=== PATIENT | female | born 1940 | race Two or more races ===

== ENCOUNTER 2021-01-29 02:28 | Inpatient (IN) | payer MEDICARE, OTHER ==
[~2021-01-29] VITALS: Ht 154.9 cm; Wt 48.5 kg
--- NOTE | 2021-01-29 02:30 | NUR ---
2 IV LINES ESTABLISHED. R FOREARM 18 G LAC 20 G. BLOOD COLLECTED AND SENT TO LAB
--- NOTE | 2021-01-29 02:32 | NUR ---
pt bibra c/o aloc. pt breathing evenly and unlabored. Per family, pt is normally independent, but she started acting "strange around 2200". upon assessment, pt moves her head side to side, not focusing on anything. Pt alternates lifting her rt side extremities and her left side extremities. Family at bedside for translation. pt attached to monitor and pox. pt given blanket and call light within reach.
--- NOTE | 2021-01-29 02:36 | NUR ---
EKG AT BEDSIDE
--- NOTE | 2021-01-29 02:46 | NUR ---
CALLED CODE STROKE
--- NOTE | 2021-01-29 02:51 | NUR ---
PT TAKEN TO RADIOLOGY FOR CT
--- NOTE | 2021-01-29 02:54 | NUR ---
blood glucose 124
[2021-01-29 02:55] LABS: BASOPHILS % (AUTO) 0.6 % (0.0-2.0); EOSINOPHILS % (AUTO) 2.3 % (0.0-6.0); HEMATOCRIT 42 % (33-45); HEMOGLOBIN 13.1 g/dL (11.5-14.8); LYMPHOCYTES # (AUTO) 3.8 /CMM (0.8-4.8); LYMPHOCYTES % (AUTO) 52.6 % (20.0-44.0); MEAN CORPUSCULAR HGB CONC 32 g/dl (31.0-36.0); MEAN CORPUSCULAR VOLUME 84 fL (82-100); MONOCYTES # (AUTO) 0.6 /CMM (0.1-1.30); MONOCYTES % (AUTO) 8.5 % (2.0-12.0); NEUTROPHILS # (AUTO) 2.6 /CMM (1.8-8.9); PLATELET COUNT (AUTO) 199 /CMM (150-450); RED BLOOD CELL COUNT(AUTO) 4.96 MIL/uL (4.0-5.2); WHITE BLOOD COUNT (AUTO) 7.2 K/uL (4.3-11.0)
--- NOTE | 2021-01-29 03:00 | NUR ---
PT RETURNED FROM CT
[2021-01-29 03:02] LABS: CALCIUM, SERUM 8.8 mg/dL (8.5-10.1); CREATININE 0.7 mg/dL (0.6-1.3); POTASSIUM 3.5 mmol/L (3.5-5.1)
--- NOTE | 2021-01-29 03:05 | NUR ---
DR YORK AT BEDSIDE SPEAKING WITH NEUROTELESURGEON
[2021-01-29 03:19] LABS: ALBUMIN 3.5 g/dL (3.4-5.0); BILIRUBIN,DIRECT 0.2 mg/dL (0.0-0.2); BILIRUBIN,TOTAL 0.6 mg/dL (0.2-1.0); TOTAL PROTEIN, SERUM 7.5 g/dL (6.4-8.2)
[2021-01-29] MEDS ORDERED: IV NS 0.9% 250 ML IV ONE (03:22)
[2021-01-29] MEDS ORDERED: IOHEXOL-350 100 ML VIAL IV ONE (03:22)
[2021-01-29 03:27] LABS: CHOLESTEROL 174 mg/dL (<200); TRIGLYCERIDES 154 mg/dL (30-150)
[2021-01-29 03:28] LABS: HDL CHOLESTEROL 84 mg/dL (40-60); LDL 93 mg/dL (0-99)
[2021-01-29] MEDS ORDERED: LORAZEPAM INJ 2 MG/ML VIAL IV ONE (03:30)
--- NOTE | 2021-01-29 03:31 | NUR ---
taken to ct
[2021-01-29 03:40] LABS: THYROID STIMULATING HORMONE 4.424 uIU/mL (0.358-3.74)
--- NOTE | 2021-01-29 03:45 | NUR ---
CALL FROM LAB. RAPID COVID NEGATIVE.
[2021-01-29] MEDS ORDERED: LORAZEPAM INJ 2 MG/ML VIAL ONE (04:01)
--- NOTE | 2021-01-29 04:29 | NUR ---
gave report to VENUS Garcia for zac
[2021-01-29] MEDS ORDERED: MAG HYDROX/AL HYDROX/SIMETH 30 ML UDC PO PRN (04:30)
[2021-01-29] MEDS ORDERED: MAGNESIUM HYDROXIDE 30 ML UDC PO PRN (04:30)
[2021-01-29] MEDS ORDERED: ONDANSETRON HCL/PF 4 MG/2 ML VIAL IVP PRN (04:30)
[2021-01-29] MEDS ORDERED: HYDROCODONE/APAP 5/325MG TABLET PO PRN (04:30)
[2021-01-29] MEDS ORDERED: Z GUARD REMEDY 2 OZ OINT TP PRN (04:30)
[2021-01-29] MEDS ORDERED: ZOLPIDEM TARTRATE 5 MG TABLET PO PRN (04:30)
--- NOTE | 2021-01-29 04:30 | NUR ---
yonas [place] [facility] [phone]
[2021-01-29 04:40] VITALS: BP 151/64
--- NOTE | 2021-01-29 04:40 | NUR ---
COSMETOLOGY EDUCATOR ADMITTING NOTE RECEIVED REPORT FROM ZEINAB FINE RN. PATIENT RECEIVED MEDICALLY STABLE. PATIENT IS ALERT BUT CONFUSED, HONDURAN SPEAKING ONLY. BREATHING EVEN AND UNLABORED, TOLERATING ROOM AIR WITH 100% O2 SATURATION. PATIENT IS UNABLE TO AMBULATE AT THIS TIME. SKIN IS INTACT. L AC #20 G AND R FA 18 G PATENT AND INTACT. CALLED SON ([phone]) TO OBTAIN ADMISSION INFORMATION. ORIENTED PATIENT TO THE UNIT, ROOM, PRIMARY NURSE, CHARGE NURSE, AND ATG JAVA DEVELOPER. SAFETY MEASURES IN PLACE: BED IN LOCKED AND LOWEST POSITION, BED ALARM ON, SIDE RAILS UP X 3, CALL LIGHT WITHIN REACH, HOB ELEVATED. WILL MONITOR PATIENT CLOSELY.
--- NOTE | 2021-01-29 07:10 | NUR ---
SUPPORT COORDINATOR OPENING NOTE RECEIVED PATIENT SLEEPING IN BED. EASILY AWAKENED. A/O X1-2. ON ROOM AIR, TOLERATING WELL. NO SOB NOTED. IN NO APPARENT DISTRESS. TELE READING SHOWS SINUS ARRHYTHMIA WITH MULTIFOCAL PVC's AND OCCASIONAL PJC's. DENIES ANY PAIN OR DISCOMFORT AT THIS TIME. PT IS CURRENTLY ON NPO STATUS. IV ACCESS ON L AC #20 G AND R FA #18 G, INTACT. SAFETY MEASURES MAINTAINED. BED IN LOWEST POSITION, BRAKES LOCKED. SIDE RAILS UP X2. CALL LIGHT WITHIN REACH. WILL CONTINUE PLAN OF CARE.
--- NOTE | 2021-01-29 07:39 | NUR ---
NUT GRINDER CLOSING NOTE PATIENT IN BED, SLEEPING. EASILY AROUSED. PATIENT STILL CONFUSED. PATIENT ASKED TO GO TO THE BATHROOM, HELPED PATIENT AMBULATE. PATIENT DOES NOT COMPLAIN OF ANY PAIN OR DISCOMFORT AT THIS TIME. NO WORSENING OF AMS. PATIENT REMAINED STABLE DURING THE SHIFT. BREATHING EVEN AND UNLABORED, STILL TOLERATING ROOM AIR. ALL NEEDS MET AND ATTENDED. ALL ORDERS CARRIED OUT. SAFETY PRECAUTIONS MAINTAINED: HOB ELEVATED, SIDE RAILS X3, BED ALARM ON, BED IN LOCKED AND LOWEST POSITION, CALL LIGHT WITHIN REACH. ENDORSED TO DAY SHIFT NURSE FOR EN.
[2021-01-29] MEDS ORDERED: SIMV-46 PO (07:45)
[2021-01-29] MEDS ORDERED: METF-881 PO (07:45)
[2021-01-29] MEDS ORDERED: LOSA100T31 PO (07:45)
[2021-01-29] MEDS ORDERED: FURO20TA4 PO (07:45)
[2021-01-29] MEDS ORDERED: ASPI-1169 PO (07:45)
[2021-01-29] MEDS ORDERED: BIMA2.5D5 EACHEYE (07:45)
[2021-01-29] MEDS ORDERED: DORZ10DR11 EACHEYE (07:45)
[2021-01-29] MEDS: ASPIRIN 81 MG TAB.CHEW PO SCH (08:03)
[2021-01-29] MEDS: CLOPIDOGREL BISULFATE 75 MG TABLET PO SCH (08:03)
[2021-01-29] MEDS ORDERED: IV D5/ 0.9% NACL 1,000 ML IV ONE (08:30)
[2021-01-29] MEDS ORDERED: DEXTROSE 50%-WATER 50 ML DISP.SYRIN IV PRN (08:30)
[2021-01-29 08:34] VITALS: BP 147/74
[2021-01-29] MEDS: METFORMIN XR 500 MG TAB.SR.24H PO SCH (09:00)
[2021-01-29] MEDS: LOSARTAN POTASSIUM 50 MG TABLET PO SCH (09:00)
[2021-01-29] MEDS: FUROSEMIDE 20 MG TABLET PO SCH (09:00)
[2021-01-29] MEDS ORDERED: ASPIRIN 81 MG TAB.CHEW PO SCH (09:00)
[2021-01-29 09:31] LABS: BASOPHILS % (AUTO) 0.4 % (0.0-2.0); EOSINOPHILS % (AUTO) 0.7 % (0.0-6.0); HEMATOCRIT 41 % (33-45); HEMOGLOBIN 12.9 g/dL (11.5-14.8); LYMPHOCYTES # (AUTO) 1.8 /CMM (0.8-4.8); LYMPHOCYTES % (AUTO) 28.8 % (20.0-44.0); MEAN CORPUSCULAR HGB CONC 31 g/dl (31.0-36.0); MEAN CORPUSCULAR VOLUME 85 fL (82-100); MONOCYTES # (AUTO) 0.4 /CMM (0.1-1.30); MONOCYTES % (AUTO) 6.8 % (2.0-12.0); NEUTROPHILS % (AUTO) 63.3 % (43.0-81.0); PLATELET COUNT (AUTO) 176 /CMM (150-450); RED BLOOD CELL COUNT(AUTO) 4.83 MIL/uL (4.0-5.2); WHITE BLOOD COUNT (AUTO) 6.3 K/uL (4.3-11.0)
[2021-01-29] MEDS: TIMOLOL MAL/DORZOLAM HCL OPHTH 10 ML BOTTLE EACHEYE SCH ×2 (09:51→17:14)
--- NOTE | 2021-01-29 10:10 | NUR ---
FAA CERTIFIED POWERPLANT MECHANIC NOTE: SWALLOW JESSICA ACOSTA CAME AND ASSESSED PT FOR SWALLOW EVALUATION - ORDERED MECHANICAL SOFT DIET FOR THE PT. Addendum: 01/29/21 at 1101 by MONISHA IWSE RN [facility] CALLED AND INFORMED THAT PT IS VEGAN. INFORMED NUTRITION. ORDER CARRIED OUT.
[2021-01-29 10:36] LABS: ALANINE AMINOTRANSFERASE 91 U/L (12-78); ALBUMIN 3.2 g/dL (3.4-5.0); ALKALINE PHOSPHATASE 121 U/L (46-116); ASPARTATE AMINOTRANSFERASE 121 U/L (15-37); BILIRUBIN,TOTAL 0.6 mg/dL (0.2-1.0); CALCIUM, SERUM 8.7 mg/dL (8.5-10.1); CARBON DIOXIDE 23 mmol/L (21-32); CHLORIDE 105 mmol/L (98-107); CREATININE 0.5 mg/dL (0.6-1.3); GLUCOSE 114 mg/dL (74-106); POTASSIUM 3.7 mmol/L (3.5-5.1); SODIUM SERUM 137 mmol/L (136-145); UREA NITROGEN, BLOOD 11 mg/dL (7-18)
--- NOTE | 2021-01-29 11:01 | NUR ---
MS RN NOTE PATIENT WAS BROUGHT DOWN FOR MRI OF THE BRAIN WITHOUT CONTRAST.
--- NOTE | 2021-01-29 11:02 | NUR ---
MS RN NOTE: VTE REASSESSMENT VTE >5 ORDERED DVT PUMP AND INFORMED CORRINE WEBBER, FOR A CHEMICAL PROPHYLAXIS
--- NOTE | 2021-01-29 11:50 | NUR ---
GEOTECHNICAL OPERATING ENGINEER NOTE PATIENT JUST GOT BACK FROM MRI
[2021-01-29] MEDS: INSULIN REGULAR, HUMAN 100 UNIT/ML 3 ML VIAL SQ PRN (13:07)
[2021-01-29] MEDS: BLOOD SUGAR DIAGNOSTIC 1 EACH STRIP IN SCH ×3 (13:07→22:09)
--- NOTE | 2021-01-29 13:11 | NUR ---
WELDING PANTOGRAPH OPERATOR NOTE BS OF 143. GAVE 2 UNITS OF INSULIN PER INSULIN COVERAGE.
[2021-01-29 16:00] VITALS: BP 122/54
[2021-01-29] MEDS ORDERED: BIMATOPROST 2.5 ML DROPS OP SCH (18:00)
[2021-01-29] MEDS ORDERED: SIMVASTATIN 20 MG TABLET PO SCH (18:00)
--- NOTE | 2021-01-29 18:03 | NUR ---
VEGETABLE HARVEST WORKER CLOSING NOTE PATIENT RESTING IN BED. A/O X2-3. ON ROOM AIR, SATURATING WELL AT 96%. NO SOB NOTED. SHOWS NO SIGNS OF RESPIRATORY DISTRESS. TELE READING SHOWS SINUS ARRHYTHMIA WITH MULTIFOCAL PVC's AND OCCASIONAL PJC's. NO REPORTS OF PAIN OR DISCOMFORT AT THIS TIME. IV ACCESS ON L AC #20 G AND R FA #18 G, INTACT AND PATENT, D5NS CURRENTLY RUNNING AT 80 ML/HR. ROUTINE MEDS WERE GIVEN ORDERED. ALL NEEDS HAVE BEEN MET AND ATTENDED. SAFETY MEASURES MAINTAINED. BED IN LOWEST POSITION, BRAKES LOCKED. SIDE RAILS UP X2. CALL LIGHT WITHIN REACH. WILL ENDORSE CONTINUITY OF CARE TO ONCOMING SHIFT.
[2021-01-29 20:00] VITALS: BP 101/55
--- NOTE | 2021-01-29 20:00 | NUR ---
ENGINEERING CLERK OPENING NOTE RECEIVED PT AWAKE IN BED. A/O X2. PT IS [place] ISLANDER-SPEAKING ONLY. PT STABLE ON ROOM AIR. NO SOB NOTED. NO S/S OF RESPIRATORY DISTRESS. PT IS ON EXTERNAL TELE SPECIAL INVESTIGATOR READING AFIB 86. PT IS AMBULATORY WITH WALKER. PT HAS NO C/O PAIN AT THIS TIME. IV ACCESS IN LAC #20G AND RFA #18G, D5/0.9% NS RUNNING @ 80 ML/HR. IV IS INTACT AND PATENT. SAFETY MEASURES MAINTAINED. BED IN LOWEST LOCKED POSITION, HOB ELEVATED, SIDE RAILS UP X2. CALL LIGHT AND TABLE WITHIN REACH. WILL CONTINUE WITH PLAN OF CARE.
--- NOTE | 2021-01-29 20:50 | NUR ---
GUNNAR, PT'S DAUGHTER, AT BEDSIDE AND WAS UPDATED. WILL CONTINUE WITH PLAN OF CARE.
[2021-01-29] MEDS: LATANOPROST EYE DROP 0.005% 2.5 ML BOTTLE EACHEYE SCH (22:11)
[2021-01-30] VITALS (43 sets, daily range): BP systolic 84–147; BP diastolic 36–85
--- NOTE | 2021-01-30 02:00 | NUR ---
Vtach noted on external automotive teacher. Found patient sleeping and snoring. Valentine, charge nurse, performed sternal rub and patient was unresponsive. Pulse not palpable. Compressions started by Abhishek RN for 15 seconds. Patient woke up and code was cancelled. LEAD INSTRUCTOR/FLIGHT ATTENDANT at bedside and stat EKG and labs done.
[2021-01-30] MEDS ORDERED: LORAZEPAM INJ 2 MG/ML VIAL IV PRN (02:30)
[2021-01-30] MEDS ORDERED: DILTIAZEM HCL IV 125 MG in IV NS 0.9% 100 ML IV PRN ×2 (02:30→12:00)
--- NOTE | 2021-01-30 02:40 | NUR ---
RN/ICU-RECEIVED PT. FROM 3WEST BY BED PER ACLS PROTOCOL. NURSING FOCUS:CARDIAC ARRHYTHMIA R/T DIAGNOSIS OF VTACH. PT. AWAKE, NON-TURKMEN SPEAKING, LANGUAGE ONLY. EKG ATRIAL FIBRILLATION W/ PVC'S IN BIGEMINY W/ FREQUENT RUNS OF MULTIFOCAL PVCS IN 6-8-13 BEATS . BP-142/63. BREATHING SPONTANEOUSLY TO ROOM AIR W/ O2 SUPPORT OF 2 L /NC. SATS.-100%. DENIES PAIN OR DISCOMFORT. ACNBalta LOUISE HERE W/ ORDER TO START PT. ON AMIODARONE DRIP PER PROTOCOL.
[2021-01-30 02:44] LABS: CALCIUM, SERUM 7.9 mg/dL (8.5-10.1); CREATININE 0.6 mg/dL (0.6-1.3); MAGNESIUM 1.9 mg/dL (1.8-2.4); POTASSIUM 3.6 mmol/L (3.5-5.1)
[2021-01-30] MEDS ORDERED: AMIODARONE 150 MG/3 ML VIAL IV ONE ×2 (02:52→03:05)
[2021-01-30] MEDS ORDERED: AMIODARONE 150 MG in IV D5W 100 ML IV ONE (03:00)
--- NOTE | 2021-01-30 03:03 | NUR ---
RN/ICU-AMIODARONE 150MG INITIAL IV BOLUS DOSE GIVEN OVER 10 MINS. THEN STARTED MAINTENANCE DRIP AT 1 MG/MIN PER PROTOCOL. WILL CONTINUE TO MONITOR PT. PER PROTOCOL.
[2021-01-30] MEDS: AMIODARONE 450 MG in IV D5W 250 ML IV PRN ×2 (03:15→10:27)
[2021-01-30 03:38] LABS: BASOPHILS % (AUTO) 0.3 % (0.0-2.0); EOSINOPHILS % (AUTO) 2.2 % (0.0-6.0); HEMATOCRIT 39 % (33-45); HEMOGLOBIN 12.1 g/dL (11.5-14.8); LYMPHOCYTES # (AUTO) 3.1 /CMM (0.8-4.8); LYMPHOCYTES % (AUTO) 47.5 % (20.0-44.0); MEAN CORPUSCULAR HGB CONC 31 g/dl (31.0-36.0); MEAN CORPUSCULAR VOLUME 84 fL (82-100); MONOCYTES # (AUTO) 0.5 /CMM (0.1-1.30); MONOCYTES % (AUTO) 7.4 % (2.0-12.0); NEUTROPHILS # (AUTO) 2.8 /CMM (1.8-8.9); NEUTROPHILS % (AUTO) 42.6 % (43.0-81.0); PLATELET COUNT (AUTO) 175 /CMM (150-450); RED BLOOD CELL COUNT(AUTO) 4.59 MIL/uL (4.0-5.2); WHITE BLOOD COUNT (AUTO) 6.6 K/uL (4.3-11.0)
--- NOTE | 2021-01-30 03:40 | NUR ---
RN/ICU- SPOKE TO DTR IN LAW GUNNAR, BY PHONE, REGARDING PT. STATUS, VERBALIZED UNDERSTANDING.(TEL NO. [phone]) (SON-DENNY ALBERTO-TEL. NO.[phone]).
[2021-01-30 04:23] LABS: BILIRUBIN,URINE NEGATIVE (NEGATIVE); COLOR,URINE YELLOW (YELLOW); LEUKOCYTE ESTERASE ,URINE NEGATIVE (NEGATIVE); NITRITE, URINE NEGATIVE (NEGATIVE); PROTEIN,URINE 30 mg/dl (NEGATIVE); UGLUCOSE NEGATIVE (NEGATIVE); UROBILINOGEN,URINE 0.2 EU/dL (0.2)
[2021-01-30 04:31] LABS: BACTERIA,URINE Moderate /HPF (None Seen); CALCIUM OXALATE CRYSTALS,UR Many /HPF (None Seen); MUCUS,URINE Few /LPF (None Seen); RBC,URINE 21-50 /HPF (0-2); SQUAMOUS EPITHELIAL CELL,UR Few /HPF (None Seen); WBC,URINE 0-2 /HPF (0-3)
--- NOTE | 2021-01-30 05:55 | NUR ---
RN/ICU- NOW PT. HR 40'S-50'S HR REGULAR, BP-142/70, LAST RUNS OF PVCS 13 BEATS WAS AT 0537, NOW W/ OCCASIONAL, UNIFOCAL PVCS, ACNP Long LOUISE MADE AWARE, W/ ORDER TO HOLD AMIODARONE DRIP AND CONTINUE TO MONITOR PT. CLOSELY PER PROTOCOL.
--- NOTE | 2021-01-30 06:52 | NUR ---
RN/ICU- NOW PT UNRESPONSIVE, WENT INTO PULSELESS VTACH/VFIB, ACLS INITIATED, DR. DARLENE FINE MD IN ATTENDANCE. PT. DEFIBRILLATED W/ 200 JOULES, THEN PT. CONVERTED TO ATRIAL FIB W/ HR- 48 /MIN. PT. NOW AWAKE, ALERT, RESPONDING APPROPRIATELY.
--- NOTE | 2021-01-30 06:58 | NUR ---
RN/ICU- AMIODARONE DRIP RESTARTED AT 1MG/MIN. PER PROTOCOL ORDERED BY RR. DARLENE FNIE MD.
--- NOTE | 2021-01-30 07:08 | NUR ---
RN/ICU-ACNP Long LOUISE MADE AWARE OF CODE BLUE BY PHONE NO NEW ORDERS.
--- NOTE | 2021-01-30 07:10 | NUR ---
RN/ICU-DAUGHTER IN LAW GUNNAR NOTIFIED OF PT. STATUS AND RECENT EVENT BY PHONE.
--- NOTE | 2021-01-30 07:20 | NUR ---
COOK SUPERVISOR NOTES RECEIVED PATIENT IN BED RESTING COMFORTABLY IN MODERATE HIGH BACK REST, A/O X 2, ON OXYGEN 2LPM VIA NC SATING 100%. IV ACCESS ON LAC#20 AND RFA#18 WITH AMIO DRIP 1MG TO RUN FOR 6HRS, ON AERODYNAMIC CONSULTANT WITH CURRENT READING OF AFIB WITH HR OF 40'S. SAFETY MEASURES IN PLACE, BED IN LOWEST LOCKED POSITION WITH SIDE RAILS X2, CALL LIGHT WITHIN EASY REACH. WILL CONTINUE TO MONITOR.
[2021-01-30] MEDS: BLOOD SUGAR DIAGNOSTIC 1 EACH STRIP IN SCH ×4 (07:33→21:28)
--- NOTE | 2021-01-30 08:30 | NUR ---
CONVEYOR TENDER CONCRETE MIXING PLANT NOTES HELD COZAAR DUE TO HR OF 40'S. WILL CONTINUE TO MONITOR.
--- NOTE | 2021-01-30 08:33 | NUR ---
WOUND CARE CONSULT: PT RESTING AT THIS TIME. CURRENT MARTÍNEZ SCORE IS 13. RECOMMENDATIONS MADE FOR SKIN PROTECTION. DISCUSSED WITH NURSING STAFF. MD IN AGREEMENT WITH PLAN OF CARE.
[2021-01-30] MEDS: CLOPIDOGREL BISULFATE 75 MG TABLET PO SCH (08:54)
[2021-01-30] MEDS: METFORMIN XR 500 MG TAB.SR.24H PO SCH (08:54)
[2021-01-30] MEDS: ASPIRIN 81 MG TAB.CHEW PO SCH (08:54)
[2021-01-30] MEDS: TIMOLOL MAL/DORZOLAM HCL OPHTH 10 ML BOTTLE EACHEYE SCH ×2 (08:54→17:09)
[2021-01-30] MEDS: Magnesium 1GM/D5W 100ML PREMIX 100 ML IV SCH ×2 (08:54→09:48)
[2021-01-30] MEDS: FUROSEMIDE 20 MG TABLET PO SCH (08:54)
[2021-01-30] MEDS: LOSARTAN POTASSIUM 50 MG TABLET PO SCH (09:00)
--- NOTE | 2021-01-30 09:45 | NUR ---
BUSINESS RISK ANALYST NOTES SEEN AND EXAMINED BY DR. RODRIGUEZ, NNO, DR. RODRIGUEZ SPOKE TO SON (DENNY) VIA PHONE.
--- NOTE | 2021-01-30 10:00 | NUR ---
ARTIFICIAL STONE SETTER NOTES PATIENT WENT DOWN FOR CTA OF HEART, CONSENT SIGNED, NO SIGNS OF DISTRESS NOTED AT THIS TIME.
[2021-01-30] MEDS ORDERED: IOHEXOL-350 100 ML VIAL IV ONE (10:16)
[2021-01-30] MEDS ORDERED: CT SWABBABLE VALVE TRANS SET 1 EA INFUS.SET MC ONE (10:16)
[2021-01-30] MEDS ORDERED: IV NS 0.9% 250 ML IV ONE (10:17)
[2021-01-30] MEDS ORDERED: NITROGLYCERIN 0.4 MG/TAB BOTTLE ONE (10:19)
[2021-01-30 10:41] LABS: BILIRUBIN,DIRECT 0.1 mg/dL (0.0-0.2); BILIRUBIN,TOTAL 0.5 mg/dL (0.2-1.0)
[2021-01-30 10:42] LABS: TOTAL PROTEIN, SERUM 6.6 g/dL (6.4-8.2)
--- NOTE | 2021-01-30 11:30 | NUR ---
ZUMBA INSTRUCTOR NOTES S/P CTA OF HEART, PT IS STABLE, FAMILY AT BEDSIDE, UPDATES GIVEN REGARDING PT STATUS. WILL CONTINUE TO MONITOR.
[2021-01-30] MEDS: INSULIN REGULAR, HUMAN 100 UNIT/ML 3 ML VIAL SQ PRN ×2 (12:25→21:29)
[2021-01-30] MEDS: SIMVASTATIN 20 MG TABLET PO SCH (17:09)
--- NOTE | 2021-01-30 19:08 | NUR ---
DIALYSIS TECHNICIAN NOTES PATIENT IN BED RESTING COMFORTABLY IN MODERATE HIGH BACK REST, A/O X 3, ON ROOM AIR SATING 100%. IV ACCESS ON LAC#20 AND RFA#18 WITH AMIO DRIP 0.5MG TO RUN FOR 18HRS, ON STOCKROOM ASSOCIATE WITH CURRENT READING OF SB HR OF 40'S. SAFETY MEASURES IN PLACE, BED IN LOWEST LOCKED POSITION WITH SIDE RAILS X2, CALL LIGHT WITHIN EASY REACH. ENDORSED TO RAVELER NURSE FOR EN.
--- NOTE | 2021-01-30 19:24 | NUR ---
FRESCO ARTIST OPENING NOTES: Rec'd pt in bed resting, A&Ox3, Singaporean speaking only. On 2LPM NC tolerating well. No resp distress noted at this time. Junctional on tele monitor. LAC #20 and RFA #18 patent and flushed. Coy cath in place patent and draining urine via gravity. Safety measures in place. Will continue to monitor.
[2021-01-30] MEDS: ACETAMINOPHEN 325 MG TABLET PO PRN (20:52)
--- NOTE | 2021-01-30 20:56 | NUR ---
CLAIMS SUPERVISOR NOTE: Pt's family decided to proceed with heart cath procedure. Dr. Zaragoza made aware. Son Gabo at bedside and signed consent form.
[2021-01-30] MEDS: LATANOPROST EYE DROP 0.005% 2.5 ML BOTTLE EACHEYE SCH (21:28)
--- NOTE | 2021-01-30 22:43 | NUR ---
PRACTICE MANAGERS NOTE: 2199: Paged Dr. Zaragoza regarding pt's on amio drip and HR dropping to 40-50s. Updated that pt was coded earlier today d/t similar situation. Awaiting reply. 2236: No reply from Dr. Zaragoza. Paged Dr. Wang regarding drip and HR w/ new order to DC drip. Order noted and carried out. Charge nurse also aware. Will continue to closely monitor.
[2021-01-31] VITALS (49 sets, daily range): BP systolic 88–164; BP diastolic 37–120
[2021-01-31 04:19] LABS: BASOPHILS % (AUTO) 0.2 % (0.0-2.0); HEMATOCRIT 36 % (33-45); HEMOGLOBIN 11.5 g/dL (11.5-14.8); LYMPHOCYTES # (AUTO) 2.5 /CMM (0.8-4.8); LYMPHOCYTES % (AUTO) 21.5 % (20.0-44.0); MEAN CORPUSCULAR HGB CONC 32 g/dl (31.0-36.0); MEAN CORPUSCULAR VOLUME 83 fL (82-100); MONOCYTES # (AUTO) 1.2 /CMM (0.1-1.30); MONOCYTES % (AUTO) 10.6 % (2.0-12.0); NEUTROPHILS # (AUTO) 7.7 /CMM (1.8-8.9); NEUTROPHILS % (AUTO) 66.7 % (43.0-81.0); PLATELET COUNT (AUTO) 143 /CMM (150-450); RED BLOOD CELL COUNT(AUTO) 4.37 MIL/uL (4.0-5.2); WHITE BLOOD COUNT (AUTO) 11.6 K/uL (4.3-11.0)
[2021-01-31 04:29] LABS: CALCIUM, SERUM 8.2 mg/dL (8.5-10.1); CARBON DIOXIDE 24 mmol/L (21-32); CHLORIDE 100 mmol/L (98-107); CREATININE 0.6 mg/dL (0.6-1.3); GLUCOSE 119 mg/dL (74-106); MAGNESIUM 2.2 mg/dL (1.8-2.4); PHOSPHORUS 3.6 mg/dL (2.5-4.9); SODIUM SERUM 132 mmol/L (136-145); UREA NITROGEN, BLOOD 11 mg/dL (7-18)
[2021-01-31 04:33] LABS: ALBUMIN 2.9 g/dL (3.4-5.0); BILIRUBIN,DIRECT 0.2 mg/dL (0.0-0.2); BILIRUBIN,TOTAL 0.8 mg/dL (0.2-1.0); TOTAL PROTEIN, SERUM 6.2 g/dL (6.4-8.2)
--- NOTE | 2021-01-31 06:24 | NUR ---
CROZE CUTTER NOTE: Ulises pt's son Bherep to obtain consent for anesthesia. Gave consent, verified w/ Huong DONOVAN. Consent placed in chart.
--- NOTE | 2021-01-31 07:29 | NUR ---
RN OPENING NOTES RECEIVED PATIENT A&0 X3, ESTONIAN SPEAKING. SATURATING 98% ON RA. APPEARS COMFORTABLE AND NOT IN ANY RESPIRATORY DISTRESS. SB 40'S-50'S ON TELE MONITOR. IV LINES IN LEFT AC AND RIGHT FA. JEWELRY TAPED. PRATER DRAINING TO GRAVITY. DVT PUMPS ON. SAFETY CHECKS IN PLACE. WILL CONTINUE TO MONITOR.
[2021-01-31] MEDS: BLOOD SUGAR DIAGNOSTIC 1 EACH STRIP IN SCH ×4 (07:47→22:33)
--- NOTE | 2021-01-31 08:12 | NUR ---
RN NOTE PATIENT IS ON ASPIRIN, CLOPIDOGREL, FUROSEMIDE, AND LOSARTAN FOR 0900. PER DR TERRY, HE STILL WANTS US TO GIVE ALL MEDS THIS MORNING PRIOR TO PROCEDURE.
[2021-01-31] MEDS: TIMOLOL MAL/DORZOLAM HCL OPHTH 10 ML BOTTLE EACHEYE SCH ×2 (08:19→17:10)
[2021-01-31] MEDS: POTASSIUM CL. PREMIX PERIPHER. 50 ML IV SCH ×5 (08:19→13:47)
[2021-01-31] MEDS: ASPIRIN 81 MG TAB.CHEW PO SCH (08:22)
[2021-01-31] MEDS: CLOPIDOGREL BISULFATE 75 MG TABLET PO SCH (08:22)
[2021-01-31] MEDS: FUROSEMIDE 20 MG TABLET PO SCH (08:22)
[2021-01-31] MEDS: LOSARTAN POTASSIUM 50 MG TABLET PO SCH (08:24)
--- NOTE | 2021-01-31 08:31 | NUR ---
WOUND CARE: PT SEEN FOR SKIN ASSESSMENT. SKIN IS INTACT. RECOMMENDATIONS MADE FOR SKIN PROTECTION. DISCUSSED WITH NURSING STAFF. MD IN AGREEMENT WITH PLAN OF CARE.
--- NOTE | 2021-01-31 09:30 | NUR ---
RN NOTE CONSENT FOR PROCEDURE AND FOR ANESTHESIA RE-DONE TO ANOTHER FORM. RENA ALBERTO (SON) STILL IN AGREEMENT THROUGH TELEPHONE CONSENT WITNESSED BY 2 RN'S.
[2021-01-31] MEDS ORDERED: IV NS 0.9% 1,000 ML ONE (09:40)
[2021-01-31] MEDS ORDERED: IODIXANOL 150 ML IV ONE ×2 (09:41→11:03)
[2021-01-31] MEDS ORDERED: IV D5/0.45 NACL 1,000 ML IV ONE (10:30)
--- NOTE | 2021-01-31 10:55 | NUR ---
RN NOTE PATIENT LEFT THE UNIT WITH THE ENVIRONMENTAL COMMUNICATIONS SPECIALIST NURSES VIA ACLS PROTOCOL. PATIENT WAS NOT IN ANY DISTRESS AND VITAL SIGNS WERE STABLE. SON CAME FOR A QUICK VISIT PATIENT WAS ABOUT TO LEAVE.
[2021-01-31] MEDS ORDERED: LIDOCAINE HCL/MPF 1% 30 ML VIAL IJ ONE (11:03)
[2021-01-31] MEDS ORDERED: NITROGLYCERIN ICAR 1,000 MCG/10 ML VIAL ICAR ONE (11:03)
[2021-01-31] MEDS ORDERED: FENTANYL PF 100MCG/2ML AMPUL ONE (11:26)
[2021-01-31] MEDS ORDERED: MIDAZOLAM HCL 2 MG/2ML VIAL ONE (11:26)
[2021-01-31] MEDS ORDERED: HEPARIN SODIUM, PORCINE 1,000 UNIT/ML VIAL ONE ×2 (11:37→12:02)
[2021-01-31] MEDS ORDERED: IODIXANOL 320MG/ML 50 ML IV ONE (11:37)
[2021-01-31] MEDS ORDERED: TICAGRELOR 90 MG TABLET PO ONE (11:56)
[2021-01-31] MEDS ORDERED: CLOPIDOGREL BISULFATE 300 MG TABLET ONE (11:59)
--- NOTE | 2021-01-31 12:00 | NUR ---
RN NOTE 4TH BAG OF KCL 10 MEQ AND NOONTIME ACCUCHECK NOT ADMINISTERED SINCE PT IS AT [facility].
--- NOTE | 2021-01-31 13:00 | NUR ---
RN NOTE RECEIVED PT FROM [facility] VIA ACLS PROTOCOL. REPORT RECEIVED FROM VENUS ROJAS. RIGHT FEMORAL SITE DRESSING DRY AND INTACT, SOME SOFT SWELLING SEEN AND MARKED. NO PAIN NO HEMATOMA. LEFT FEMORAL SITE WITH TRANSVENOUS PACING ATTACHED TO EXTERNAL PACEMAKER WITH RATE OF 80 AND OUTPUT OF 25. PERIPHERAL LINES AT RIGHT LOWER ARM AND LEFT AC. PRATER DRAINING HEMATURIC URINE. WILL KEEP BEDREST FOR 4 HOURS. [address] DUE TO DISRUPTION OF CARE. CIRCULATION INTACT ON UPPER AND LOWER EXTREMITIES. WILL CONTINUE TO MONITOR.
[2021-01-31] MEDS: GLUCERNA SHAKE 237 ML CAN PO SCH (16:00)
[2021-01-31] MEDS: SIMVASTATIN 20 MG TABLET PO SCH (17:11)
--- NOTE | 2021-01-31 18:00 | NUR ---
RN NOTE TELEPHONE CONSENT OBTAINED FROM SON VICKIE ALBERTO FOR AICD PACEMAKER PLACEMENT. WITNESSED BY [address] DAMON WILL ALSO SPEAK WITH FAMILY TOMORROW.
--- NOTE | 2021-01-31 18:45 | NUR ---
RN CLOSING NOTES PATIENT REMAINS A&OX3. SATURATING WELL ON RA. NO SIGNS OF DISTRESS. RIGHT FEMORAL SITE NO CHANGES FROM THE SOFT SWELLING NOTED EARLIER, NO BLEEDING NO HEMATOMA. DORSALIS PEDIS PULSES PALPABLE. LEFT FEMORAL SITE CONNECTED TO EXTERNAL PACEMAKER AND PACING IN THE LOW 80'S. PRATER DRAINING HEMATURIC STILL. HAD DINNER THEN NPO MN FOR AICD PACEMAKER PLACEMENT TOMORROW. SAFETY CHECKS IN PLACE IN PLACE. WILL CONTINUE TO MONITOR.
--- NOTE | 2021-01-31 20:46 | NUR ---
icu specialist. initial assessment. received the pt rest on the bed. awake, alert. follow commands. laboratory monitor showing a paced. room air. sat 98%. no acute distress noted. lt femoral transvenous pace maker placed. will continue to monitor vitals.
[2021-01-31] MEDS: LATANOPROST EYE DROP 0.005% 2.5 ML BOTTLE EACHEYE SCH (22:27)
[2021-02-01] VITALS (35 sets, daily range): BP systolic 106–157; BP diastolic 46–108
--- NOTE | 2021-02-01 00:41 | NUR ---
forester silviculture.no changes. at this time pt is sleeping. hematuria present after placement of f/c. i received with hematuria present. will continue to monitor.pt is npo. for icd placement
--- NOTE | 2021-02-01 02:41 | NUR ---
MEAT AND SEAFOOD CLERK. DURING SHIFT PT SLEPT WELL.
[2021-02-01 04:15] LABS: BASOPHILS % (AUTO) 0.3 % (0.0-2.0); EOSINOPHILS % (AUTO) 1.7 % (0.0-6.0); HEMATOCRIT 34 % (33-45); LYMPHOCYTES # (AUTO) 1.6 /CMM (0.8-4.8); LYMPHOCYTES % (AUTO) 17.6 % (20.0-44.0); MEAN CORPUSCULAR HGB CONC 32 g/dl (31.0-36.0); MEAN CORPUSCULAR VOLUME 83 fL (82-100); MONOCYTES % (AUTO) 10.4 % (2.0-12.0); NEUTROPHILS # (AUTO) 6.4 /CMM (1.8-8.9); PLATELET COUNT (AUTO) 135 /CMM (150-450); RED BLOOD CELL COUNT(AUTO) 4.09 MIL/uL (4.0-5.2); WHITE BLOOD COUNT (AUTO) 9.2 K/uL (4.3-11.0)
[2021-02-01 04:32] LABS: CALCIUM, SERUM 7.4 mg/dL (8.5-10.1); CARBON DIOXIDE 25 mmol/L (21-32); CHLORIDE 101 mmol/L (98-107); CREATININE 0.5 mg/dL (0.6-1.3); GLUCOSE 110 mg/dL (74-106); MAGNESIUM 1.9 mg/dL (1.8-2.4); PHOSPHORUS 2.6 mg/dL (2.5-4.9); POTASSIUM 3.2 mmol/L (3.5-5.1); SODIUM SERUM 134 mmol/L (136-145); UREA NITROGEN, BLOOD 6 mg/dL (7-18)
--- NOTE | 2021-02-01 04:43 | NUR ---
FILM PROCESS OPERATOR. AM CARE GIVEN. PT IS NPO FOR ICD PLACEMENT. HOB ELEVATED, MONITOR SHOWING A PACING. TURN AND REPOSITION Q2H. FC PATENT. URINE DRAINING. STILL HEMATURIA PRESENT. WILL CONTINUE TO MONITOR
--- NOTE | 2021-02-01 07:10 | NUR ---
RN INITIAL NOTES RECEIVED PT AWAKE, A/OX2. ON ROOM AIR. NO RESPIRATORY DISTRESS NOTED. NO SOGNS OF PAIN NOTED. IV LINES IN PLACE. PRATER IN PLACE. HEMATURIA NOTED. BLE ELEVATED. PT FOR AICD PLACEMENT TODAY. WILL MONITOR
[2021-02-01] MEDS: BLOOD SUGAR DIAGNOSTIC 1 EACH STRIP IN SCH ×4 (07:49→21:50)
[2021-02-01] MEDS: ASPIRIN 81 MG TAB.CHEW PO SCH (09:00)
[2021-02-01] MEDS: GLUCERNA SHAKE 237 ML CAN PO SCH (09:00)
[2021-02-01] MEDS: CLOPIDOGREL BISULFATE 75 MG TABLET PO SCH (09:00)
[2021-02-01] MEDS: TIMOLOL MAL/DORZOLAM HCL OPHTH 10 ML BOTTLE EACHEYE SCH ×2 (09:04→17:22)
[2021-02-01] MEDS: LOSARTAN POTASSIUM 50 MG TABLET PO SCH (09:07)
[2021-02-01] MEDS: FUROSEMIDE 20 MG TABLET PO SCH (09:07)
[2021-02-01] MEDS: POTASSIUM CL. PREMIX PERIPHER. 50 ML IV SCH ×4 (09:18→15:11)
[2021-02-01] MEDS ORDERED: LIDOCAINE HCL/MPF 1% 30 ML VIAL IJ ONE (09:47)
--- NOTE | 2021-02-01 10:13 | NUR ---
RN NOTES PT TRANSPORTED TO OR FOR AICD PLACEMENT WITH DR DAMON. PT A/OX2, ON ROOM AIR. VS WNL. EXTERNAL PACEMAKER IN PLACE. LEFT IN STABLE CONDITION.
[2021-02-01] MEDS ORDERED: FENTANYL PF 100MCG/2ML AMPUL ONE (10:14)
[2021-02-01] MEDS ORDERED: CELLULOSE,OXIDIZED 1 EA PACK MC ONE (11:04)
--- NOTE | 2021-02-01 12:00 | NUR ---
RN NOTES PT BACK FROM SURGERY, A/OX2. NO RESPIRATORY DISTRESS NOTED. NO SIGNS OF PAIN NOTED. LEFT CHESTWALL AICD/PACEMAKER IN PLACE. DRESSING CLEAN AND DRY. POST OP ORDERS NOTED. VS WNL. WILL CLOSELY MONITOR
--- NOTE | 2021-02-01 14:00 | NUR ---
RN NOTES LEFT FEMORAL CATH/SHEATH REMOVED BY VENUS ROJAS FROM FORENSIC CHEMIST. DRESSING IN PLACE. NO ACTIVE BLEEDING NOTED. PALPABLE FEMORAL PULSE NOTED. PT ABLE TO MOVE LOW EXTREMITIES. WILL CLOSELY MONITOR
[2021-02-01] MEDS: SIMVASTATIN 20 MG TABLET PO SCH (17:25)
--- NOTE | 2021-02-01 18:38 | NUR ---
RECEIVED PATIENT FROM ICU BED 261 TO ROOM 107, VIA BED, TELEMETRY PLACED, VS TAKEN BP: 135/69 HR: 83, SPO2 100%, RR 16, T 99.2 WILL CONT TO MONITOR
--- NOTE | 2021-02-01 18:45 | NUR ---
RN NOTES PT TRANSFERRED TO ROOM 107. PT A/OX2, ON ROOM AIR. NO SOB NOTED. IV LINES IN PLACE. PRATER IN PLACE. PT CLEAN AND COMFORTABLE. IN STABLE CONDITION. VENUS ASHTON TOOK OVER PT'S CARE.
--- NOTE | 2021-02-01 18:50 | NUR ---
COMPLAIN ON PAIN, WILL ADMINISTER PRN PAIN MED
[2021-02-01] MEDS: ACETAMINOPHEN 325 MG TABLET PO PRN (18:53)
--- NOTE | 2021-02-01 19:30 | NUR ---
ASSISTANT GOLF PROFESSIONAL OPENING NOTE RECEIVED PATIENT IN BED. A/OX2. SPEAKING, ABLE TO MAKE BASIC NEEDS KNOWN. TOLERATING ROOM AIR. RESPIRATIONS ARE EVEN AND UNLABORED. NO S/S SOB NOTED. NO C/O PAIN. EXTERNAL TELE MONITOR READS A PACING HR 83. IN NO APPARENT DISTRESS. PRATER CATHETER IS PRESENT, DRAINING TO GRAVITY. IV ACCESS IN LAC#20 AND VDE693 PATENT AND SALINE LOCKED, HOB ELEVATED IN SEMI FOWLERS SIDE RADHA SUP X3, CALL LIGHT WITHIN REACH. WILL CONTINUE TO MONITOR THROUGHOUT SHIFT.
[2021-02-01] MEDS: LATANOPROST EYE DROP 0.005% 2.5 ML BOTTLE EACHEYE SCH (21:52)
[2021-02-02] VITALS: BP 108/63
--- NOTE | 2021-02-02 03:50 | NUR ---
REFRIGERATION TECHNICIAN NOTE PATIENT SHOWS PVCS ON TELE MONITOR AT REST.
[2021-02-02 04:00] VITALS: BP 115/69
[2021-02-02 06:27] LABS: BASOPHILS % (AUTO) 0.4 % (0.0-2.0); EOSINOPHILS % (AUTO) 1.8 % (0.0-6.0); HEMATOCRIT 37 % (33-45); HEMOGLOBIN 11.8 g/dL (11.5-14.8); LYMPHOCYTES % (AUTO) 21.4 % (20.0-44.0); MEAN CORPUSCULAR HGB CONC 32 g/dl (31.0-36.0); MEAN CORPUSCULAR VOLUME 83 fL (82-100); NEUTROPHILS % (AUTO) 65.4 % (43.0-81.0); PLATELET COUNT (AUTO) 133 /CMM (150-450); RED BLOOD CELL COUNT(AUTO) 4.39 MIL/uL (4.0-5.2); WHITE BLOOD COUNT (AUTO) 9.2 K/uL (4.3-11.0)
--- NOTE | 2021-02-02 06:30 | NUR ---
INSIDE TECHNICAL SALES REPRESENTATIVE CLOSING NOTE RESTING IN BED. A/OX2.REMAINS TOLERATING ROOM AIR. NO RESP DISTRESS. TELE MONITOR READS A PACING WITH PVC. NO DISTRESS. PRATER CATHETER IS MAINTAINED, OUTPUT MANJINDER 200ML. IV ACCESS MAINTAINED IN LAC#20. BED IS LOW AND LOCKED, HOB ELEVATED IN SEMI FOWLERS SIDE RADHA SUP X3, CALL LIGHT WITHIN REACH. WILL ENDORSE TO ONCOMING SHIFT.
[2021-02-02 07:06] LABS: CARBON DIOXIDE 22 mmol/L (21-32); CHLORIDE 101 mmol/L (98-107); CREATININE 0.5 mg/dL (0.6-1.3); GLUCOSE 108 mg/dL (74-106); MAGNESIUM 1.9 mg/dL (1.8-2.4); PHOSPHORUS 3.2 mg/dL (2.5-4.9); POTASSIUM 3.3 mmol/L (3.5-5.1); SODIUM SERUM 134 mmol/L (136-145); UREA NITROGEN, BLOOD 9 mg/dL (7-18)
[2021-02-02] MEDS: BLOOD SUGAR DIAGNOSTIC 1 EACH STRIP IN SCH ×2 (07:30→12:14)
--- NOTE | 2021-02-02 07:30 | NUR ---
RN OPENING NOTE PT LAYING IN BED SEMIFOWLERS ON RA SPO2 OF 97%, BREATHING EVEN AND UNLABORED, NO SIGNS OF RESP DISTRESS. A/Ox2. PT TELE MONITOR READING OCCASIONAL V-PACING SR 90s. PT HAS PRATER CATH IN PLACE AND PATENT DRAINING DARK MANJINDER URINE TO GRAVITY. PT LAC #20 FLUSHED, PATENT AND INTACT, SL, WITH NO SIGNS OF INFILTRATION OR INFECTION. PT HAS LT CHEST AICD WITH CLEAN DRY DRSG. ALL PT SAFETY PRECAUTIONS IN PLACE, WILL CONT TO MONITOR
[2021-02-02 08:00] VITALS: BP 122/77
[2021-02-02] MEDS ORDERED: METFORMIN XR 500 MG TAB.SR.24H PO SCH (09:00)
[2021-02-02] MEDS: ASPIRIN 81 MG TAB.CHEW PO SCH (09:03)
[2021-02-02] MEDS: CLOPIDOGREL BISULFATE 75 MG TABLET PO SCH (09:03)
[2021-02-02] MEDS: TIMOLOL MAL/DORZOLAM HCL OPHTH 10 ML BOTTLE EACHEYE SCH (09:03)
[2021-02-02] MEDS: LOSARTAN POTASSIUM 50 MG TABLET PO SCH (09:04)
[2021-02-02] MEDS: FUROSEMIDE 20 MG TABLET PO SCH (09:04)
[2021-02-02] MEDS: GLUCERNA SHAKE 237 ML CAN PO SCH (09:04)
[2021-02-02] MEDS: POTASSIUM CHLORIDE 20 MEQ TAB.PRT.SR PO SCH ×3 (09:05→12:11)
[2021-02-02 12:00] VITALS: BP 110/65
[2021-02-02] MEDS: INSULIN REGULAR, HUMAN 100 UNIT/ML 3 ML VIAL SQ PRN (12:12)
[2021-02-02] MEDS ORDERED: CLOP75TA15 PO (12:34)
[2021-02-02] MEDS ORDERED: SIMV-46 PO (12:34)
[2021-02-02 16:00] VITALS: BP 119/67
--- NOTE | 2021-02-02 17:49 | NUR ---
RN NOTE PT DISCHARGED IN STABLE CONDITION
== END 2021-02-02 17:50 | disposition home or self-care (01) | DRG 265 ==
LOC: ER 02:30 → TELE 04:12 → ICU 01-30 02:33 → TELE1 02-01 18:42
PROVIDERS: ADMIT Nurse Practitioner Acute Care; ATTEND Student in an Organized Health Care Education/Training Program
PROC: 5A2204Z Restoration of Cardiac Rhythm, Single (ICD-10-PCS; 2021-01-30)
PROC: 027035Z Dilation of Coronary Artery, One Artery with Two Drug-eluting Intraluminal Devices, Percutaneous Approach (ICD-10-PCS; principal; 2021-01-31)
PROC: 5A1223Z Performance of Cardiac Pacing, Continuous (ICD-10-PCS; 2021-01-31)
PROC: B44LZZZ Ultrasonography of Femoral Artery (ICD-10-PCS; 2021-01-31)
PROC: B54CZZZ Ultrasonography of Left Lower Extremity Veins (ICD-10-PCS; 2021-01-31)
PROC: 02H63KZ Insertion of Defibrillator Lead into Right Atrium, Percutaneous Approach (ICD-10-PCS; 2021-02-01)
PROC: 02HK3KZ Insertion of Defibrillator Lead into Right Ventricle, Percutaneous Approach (ICD-10-PCS; 2021-02-01)
DX: I48.91 Unspecified atrial fibrillation (principal); G93.41 Metabolic encephalopathy; I50.21 Acute systolic (congestive) heart failure; D68.59 Other primary thrombophilia; E87.1 Hypo-osmolality and hyponatremia; I46.9 Cardiac arrest, cause unspecified; I47.2 Ventricular tachycardia; E87.6 Hypokalemia; E11.65 Type 2 diabetes mellitus with hyperglycemia; R74.01 Elevation of levels of liver transaminase levels; Z74.09 Other reduced mobility; I49.5 Sick sinus syndrome; E03.9 Hypothyroidism, unspecified; E78.5 Hyperlipidemia, unspecified; I11.0 Hypertensive heart disease with heart failure; I25.10 Atherosclerotic heart disease of native coronary artery without angina pectoris; I70.0 Atherosclerosis of aorta; Z95.810 Presence of automatic (implantable) cardiac defibrillator; K83.8 Other specified diseases of biliary tract; Z83.3 Family history of diabetes mellitus; I35.0 Nonrheumatic aortic (valve) stenosis; I25.5 Ischemic cardiomyopathy; L92.9 Granulomatous disorder of the skin and subcutaneous tissue, unspecified
CPT/HCPCS: 36415; 70450-TC; 70496-TC; 70498-TC; 70551-TC; 71045-TC; 75574; 76700-TC; 80048-TC; 80053-TC; 80061-TC; 80076-TC; 81001; 82140-TC; 82962-TC; 83605-TC; 83735-TC; 84100-TC; 84439-TC; 84443-TC; 84484-TC; 85025-TC; 85610-TC; 85730-TC; 87040-TC; 87081-TC; 87086-TC; 92526; 92611-TC; 93307-TC; 94799-TC; 97116-TC; A6403; C1721; C1725; C1769; C1887; C1894; G0378; G0500; J0282; J0690; J1644; J1815; J2060; J2250; J2704; J3010; J3475; J3480; J3490; J7042; J7050; J7060; Q9967